=== PATIENT | female | born 1995 | race American Indian/Alaskan Native ===

== ENCOUNTER 2018-03-28 03:27 | Emergency (ER) | payer SELFPAY ==
[2018-03-28 07:46] LABS: Bacteria,Urine 2+ /HPF (Negative); Bilirubin,Urine NEG (Negative); Blood,Urine NEG (Negative); Color,Urine Yellow (Yellow); Mucus,Urine 2+ /HPF; Protein,Urine <15 mg/dL mg/dL (Negative)
[2018-03-28 07:48] LABS: Hemoglobin 13.2 gm/dl (10.1-14.3); Mean Corpuscular HGB Conc 32 % (30-34); Mean Corpuscular Volume 80 fl (79-97); Platelet Count 325 K/mm3 (140-440); Red Blood Count 5.14 M/mm3 (3.65-5.03); Red Cell Distribution Width 12.5 % (13.2-15.2)
[2018-03-28 07:54] LABS: Mean Corpuscular Hemoglobin 26 pg (28-32)
[2018-03-28 08:15] LABS: Alanine Aminotransferase 13 units/L (7-56); Albumin 4.3 g/dL (3.9-5); BUN/Creatinine Ratio 21; Blood Urea Nitrogen 15 mg/dL (7-17); Calcium 9.1 mg/dL (8.4-10.2); Hemolysis Index 3; Lipase 41 units/L (13-60)
[2018-03-28 10:47] LABS: Anisocytosis 1+; Basophils % (Manual) 0 % (0.0-1.8); Eosinophils % (Manual) 0 % (0.0-4.3); Hypochromasia 1+; Platelet Estimate Cons; Total Cells Counted 100
[2018-03-28 16:22] VITALS: BP 126/85
--- NOTE | 2018-03-28 19:37 | Emergency Department Report ---
<SHAUN SHETH SCHUYLERVIANEY - Last Filed: 03/28/18 20:25> ED Abdominal Pain HPI - General Chief Complaint: Abdominal Pain Stated Complaint: ABDOMINAL PAIN,VOMITING Time Seen by Provider: 03/28/18 19:18 Source: patient Mode of arrival: Ambulatory Limitations: No Limitations - History of Present Illness Initial Comments: Diagnosis a 22-year-old -[place] Citizen female presents with lower abdominal pain and nausea and vomiting for 4 days. Patient reports last menstrual period was 4 months ago and irregular. She is having tenderness to nail fold and a headache for 2 weeks. Patient reports lower abdominal pain is in the suprapubic area sharp and intermittent. She is currently not in pain but has pain on arrival. Patient reports when symptoms present she also has nausea and vomiting. She admits to have been frequency and urgency. Denies frequency, urgency, dysuria, vaginal discharge, low back pain, chest pain, and shortness of breath. MD Complaint: abdominal pain -: days(s) (4 days) Location: suprapubic Radiation: none Migration to: no migration Severity: mild Severity scale (0 -10): 2 Quality: cramping, aching Consistency: intermittent Improves With: nothing Worsens With: nothing Associated Symptoms: nausea, vomiting. denies: diarrhea, fever, chills, constipation, dysuria, hematemesis, hematochezia, melena, hematuria, anorexia, syncope - Related Data LMP Date: 11/14/17 LMP (females 10-50): unknown Previous Rx's Medication Instructions Recorded Last Taken Type traMADol [Ultram] 50 mg PO Q6HR PRN #20 tablet 01/29/16 Unknown Rx Ciprofloxacin HCl [Cipro] 500 mg PO BID #14 tablet 03/28/18 Unknown Rx Allergies Allergy/AdvReac Type Severity Reaction Status Date / Time No Known Allergies Allergy Unverified 01/29/16 11:46 ED Review of Systems ROS: Stated complaint: ABDOMINAL PAIN,VOMITING Other details as noted in HPI Constitutional: denies: chills, fever Respiratory: denies: cough, shortness of breath, wheezing Cardiovascular: denies: chest pain, palpitations Gastrointestinal: abdominal pain (suprapubic abdominal pain), nausea, vomiting. denies: diarrhea Genitourinary: urgency, frequency. denies: dysuria, hematuria, discharge Musculoskeletal: denies: back pain, joint swelling, arthralgia, myalgia Neurological: denies: headache, weakness, numbness, paresthesias Psychiatric: denies: anxiety, depression ED Past Medical Hx - Past Medical History Previous Medical History?: No - Surgical History Past Surgical History?: No - Social History Smoking Status: Never Smoker - Medications Home Medications: Home Medications Medication Instructions Recorded Confirmed Last Taken Type traMADol [Ultram] 50 mg PO Q6HR PRN #20 tablet 01/29/16 Unknown Rx Ciprofloxacin HCl [Cipro] 500 mg PO BID #14 tablet 03/28/18 Unknown Rx ED Physical Exam - General Limitations: No Limitations General appearance: alert, in no apparent distress - Respiratory Respiratory exam: Present: normal lung sounds bilaterally. Absent: respiratory distress - Cardiovascular Cardiovascular Exam: Present: regular rate, normal rhythm. Absent: systolic murmur, diastolic murmur, rubs, gallop - GI/Abdominal GI/Abdominal exam: Present: soft, tenderness (right lower quadrant and left lower quadrant), normal bowel sounds. Absent: distended, guarding, rebound, rigid, organomegaly, mass - Back Exam Back exam: Present: normal inspection, full ROM. Absent: CVA tenderness (R), CVA tenderness (L), rash noted - Neurological Exam Neurological exam: Present: alert, oriented X3 - Psychiatric Psychiatric exam: Present: normal affect, normal mood - Skin Skin exam: Present: warm, dry, intact, normal color. Absent: rash ED Course Vital Signs 03/28/18 03/28/18 03/28/18 03:26 06:01 16:21 Temperature 99.6 F 98.6 F 98.2 F Pulse Rate 69 68 69 Respiratory 18 18 16 Rate Blood Pressure 149/96 149/96 126/85 O2 Sat by Pulse 95 96 99 Oximetry 03/28/18 21:00 Temperature Pulse Rate 70 Respiratory 17 Rate Blood Pressure O2 Sat by Pulse 98 Oximetry ED Medical Decision Making - Lab Data Result diagrams: 03/28/18 06:07 03/28/18 06:07 - Radiology Data Radiology results: report reviewed PROCEDURE: CT ABDOMEN PELVIS WO CON TECHNIQUE: Computerized axial tomography of the abdomen and pelvis was performed without intravenous contrast. This study is performed without intravascular contrast material and its sensitivity for abdominal and pelvic pathology, including neoplasms, inflammation, abscess, free fluid, thrombosis, arterial dissection and infarction, is reduced compared with a contrast enhanced study. HISTORY: RLQ LLQ tenderness, r/o kidney stones COMPARISON: No prior studies are available for comparison. FINDINGS: Visualized lower thorax: No significant abnormality. Liver: Normal size and attenuation. Spleen: Normal size and attenuation. Gallbladder and biliary system: Normal. Pancreas: Normal. Adrenals: Normal. Kidneys: There are no kidney stones or ureteral stones. There is no hydronephrosis.. GI tract: There is no bowel obstruction, colitis or enteritis. The appendix is normal.. Lymph nodes and mesentery: Normal. Vasculature: Normal. Bladder: Normal. Reproductive organs: Normal. Peritoneum: No free fluid. Musculoskeletal structures: No significant abnormality. Other: None. IMPRESSION: Normal examination of the abdomen and pelvis. - Medical Decision Making This is a 22 y.o. female presents with lower abdominal pain and nausea and vomiting for 4 days. Patient was examined by me. Vitals were stable and patient is in no acute distress. Obtained CBC, CMP, lipase, hCG qual, and urinalysis. WBCs elevated and CBC and urinalysis. Patient given Rocephin 250 mg IM once in the ER. CT of abdomen and pelvis read by radiologist, no acute findings. Patient informed of results. Start ciprofloxacin 500 mg po bid x 7 days. Plan discussed with patient to discharge home and treat outpatient. She agrees with ER plan. Patient discharged home in stable condition. Follow up with PCP in 2-3 days. Critical care attestation.: If time is entered above; I have spent that time in minutes in the direct care of this critically ill patient, excluding procedure time. ED Disposition Disposition: TO HOME OR SELFCARE Is pt being admited?: No Does the pt Need Aspirin: No Condition: Stable Instructions: Urinary Tract Infection in Women (ED), Abdominal Pain (ED) Additional Instructions: Complete full course of antibiotics as prescribed. Avoid drinking alcohol while taking antibiotics and up to 24 hours after completion. Increase fluid intake such as water to 1-2 L per day. Follow-up with primary care provider in 2-3 days. Prescriptions: Ciprofloxacin HCl [Cipro] 500 mg PO BID #14 tablet Referrals: [facility] [Outside] - 3-5 Days [facility] [Outside] - 3-5 Days [facility] [Outside] - 3-5 Days Forms: Work/School Release Form(ED) Time of Disposition: 20:43 Print Language: BHUTANESE <MICHI MOLINA - Last Filed: 03/29/18 12:57> ED Medical Decision Making - Lab Data Result diagrams: 03/28/18 06:07 03/28/18 06:07 - Medical Decision Making I was available for consultations at all times during the patient stay. I did not personally see and was not involved in the care of the patient. Roland Molina MD
--- NOTE | 2018-03-28 20:21 | Cat Scan Report ---
FINAL REPORT PROCEDURE: CT ABDOMEN PELVIS WO CON TECHNIQUE: Computerized axial tomography of the abdomen and pelvis was performed without intravenous contrast. This study is performed without intravascular contrast material and its sensitivity for abdominal and pelvic pathology, including neoplasms, inflammation, abscess, free fluid, thrombosis, arterial dissection and infarction, is reduced compared with a contrast enhanced study. HISTORY: RLQ LLQ tenderness, r/o kidney stones COMPARISON: No prior studies are available for comparison. FINDINGS: Visualized lower thorax: No significant abnormality. Liver: Normal size and attenuation. Spleen: Normal size and attenuation. Gallbladder and biliary system: Normal. Pancreas: Normal. Adrenals: Normal. Kidneys: There are no kidney stones or ureteral stones. There is no hydronephrosis.. GI tract: There is no bowel obstruction, colitis or enteritis. The appendix is normal.. Lymph nodes and mesentery: Normal. Vasculature: Normal. Bladder: Normal. Reproductive organs: Normal. Peritoneum: No free fluid. Musculoskeletal structures: No significant abnormality. Other: None. IMPRESSION: Normal examination of the abdomen and pelvis.
[2018-03-28] MEDS ORDERED: ROCEPHIN IM ONE (20:35)
[2018-03-28] MEDS ORDERED: XYLOCAINE 1% MPF 5 mL INFILTRATI ONE (20:35)
== END 2018-03-28 21:00 | disposition home or self-care (01) ==
LOC: ED 03:27
DX: R10.30 Lower abdominal pain, unspecified (principal); R11.2 Nausea with vomiting, unspecified
CPT/HCPCS: 36415; 74176; 80053; 81001; 83690; 84703; 85007; 85025; 96372; 99284; J0696

== ENCOUNTER 2018-11-11 15:01 | Emergency (ER) | payer OTHER ==
[2018-11-11 15:20] VITALS: BP 122/74
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
[2018-11-11 17:22] LABS: HCG Qualitative,Urine Negative (Negative)
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
== END 2018-11-11 18:55 | disposition home or self-care (01) ==
LOC: ED 15:01
DX: S13.9XXA Sprain of joints and ligaments of unspecified parts of neck, initial encounter (principal); S23.3XXA Sprain of ligaments of thoracic spine, initial encounter; V89.2XXA Person injured in unspecified motor-vehicle accident, traffic, initial encounter; Y93.89 Activity, other specified; Y92.488 Other paved roadways as the place of occurrence of the external cause; Y99.8 Other external cause status
CPT/HCPCS: 72040; 72070; 81025; 99283